=== PATIENT | male | born 1965 | race Caucasian/White ===

== ENCOUNTER 2021-02-14 08:58 | Outpatient (CLI) | payer OTHER | END 2021-02-14 08:59 | disposition home or self-care (01) | LOC: SCSMRI 08:58 | PROVIDERS: ATTEND Nurse Practitioner Family | DX: M51.16 Intervertebral disc disorders with radiculopathy, lumbar region (principal); M48.061 Spinal stenosis, lumbar region without neurogenic claudication | CPT/HCPCS: 72148 ==

== ENCOUNTER 2021-06-12 14:04 | Outpatient (CLI) | payer OTHER | END 2021-06-12 14:05 | disposition home or self-care (01) | LOC: SCSRAD 14:04 | PROVIDERS: ATTEND Neurological Surgery | DX: M51.26 Other intervertebral disc displacement, lumbar region (principal); M47.817 Spondylosis without myelopathy or radiculopathy, lumbosacral region | CPT/HCPCS: 72100 ==

== ENCOUNTER 2021-11-15 08:42 | Outpatient (CLI) | payer OTHER | END 2021-11-15 08:43 | disposition home or self-care (01) | LOC: SCSMRI 08:42 | DX: M48.061 Spinal stenosis, lumbar region without neurogenic claudication (principal); Z98.890 Other specified postprocedural states | CPT/HCPCS: 72158 ==

== ENCOUNTER 2022-03-04 08:35 | Outpatient (CLI) | payer OTHER | END 2022-03-04 08:36 | disposition home or self-care (01) | LOC: BICMRI 08:35 → MRI 08:36 | PROVIDERS: ATTEND Orthopaedic Surgery Orthopaedic Surgery of the Spine | DX: M51.16 Intervertebral disc disorders with radiculopathy, lumbar region (principal); M47.26 Other spondylosis with radiculopathy, lumbar region; M48.061 Spinal stenosis, lumbar region without neurogenic claudication; M47.815 Spondylosis without myelopathy or radiculopathy, thoracolumbar region; M51.37 Other intervertebral disc degeneration, lumbosacral region; M47.817 Spondylosis without myelopathy or radiculopathy, lumbosacral region; Z98.890 Other specified postprocedural states | CPT/HCPCS: 72158 ==

== ENCOUNTER 2023-04-20 14:37 | Outpatient (CLI) | payer OTHER | END 2023-04-20 14:38 | disposition home or self-care (01) | LOC: SCSRAD 14:37 | DX: Z47.89 Encounter for other orthopedic aftercare (principal); M47.816 Spondylosis without myelopathy or radiculopathy, lumbar region; Z98.890 Other specified postprocedural states | CPT/HCPCS: 72100 ==

== ENCOUNTER 2023-04-29 07:35 | Outpatient (CLI) | payer OTHER | END 2023-04-29 07:36 | disposition home or self-care (01) | LOC: SCSMRI 07:35 | PROVIDERS: ATTEND Orthopaedic Surgery Orthopaedic Surgery of the Spine | DX: Z47.89 Encounter for other orthopedic aftercare (principal); M47.816 Spondylosis without myelopathy or radiculopathy, lumbar region; M51.26 Other intervertebral disc displacement, lumbar region; M51.36 Other intervertebral disc degeneration, lumbar region; M89.38 Hypertrophy of bone, other site; R60.9 Edema, unspecified; Z98.890 Other specified postprocedural states | CPT/HCPCS: 72148 ==